=== PATIENT | female | born 1990 | race Two or more races ===

== ENCOUNTER 2021-11-22 01:57 | Inpatient (IN) | payer OTHER ==
[~2021-11-22] VITALS: Ht 162.6 cm; Wt 144.0 kg
[2021-11-22] VITALS (8 sets, daily range): BP systolic 98–125; BP diastolic 49–75
[2021-11-22 04:35] LABS: Urine Bacteria NONE SEEN /hpf (None Seen); Urine Blood 3+ /uL (Negative); Urine Mucus FEW (None Seen); Urine Specific Gravity 1.027 (1.001-1.035); Urine WBC 23 /hpf (0 - 5)
[2021-11-22 06:50] LABS: Basophils # (auto) 0.1 10 ^3/uL (0-0.2); Eosinophils # (auto) 0.3 10 ^3/uL (0-0.8); Monocytes # (auto) 0.9 10 ^3/uL (0-1.3); Neutrophils # (auto) 6.9 10 ^3/uL (1.6-8.6); Nucleated Red Blood Cells % 0.3 %
[2021-11-22 06:58] LABS: Albumin 3.5 g/dL (3.4-5.0); Calcium 8.4 mg/dL (8.5-10.1); Potassium 3.3 mmol/L (3.5-5.1)
[2021-11-22 07:00] LABS: Basophils % (auto) 0.6 % (0.0-2.0); Eosinophils % (auto) 2.4 % (0.0-7.0); Hematocrit 18.7 % (36.0-46.0); Hemoglobin 5.3 g/dL (12.2-16.2); Lymphocytes % (auto) 27.1 % (10.0-50.0); Mean Corpuscular Hemoglobin 14.6 pg (28.0-32.0); Mean Corpuscular Hgb Conc. 28.2 g/dL (32.0-36.0); Mean Corpuscular Volume 51.7 fL (80.0-100.0); Monocytes % (auto) 7.7 % (0.0-12.0); Neutrophils % (auto) 62.2 % (37.0-80.0); Red Blood Cells 3.62 10^6/uL (4.0-5.20); Red Cell Distribution Width 20.8 % (11.8-14.3); White Blood Cell 11.1 10^3/uL (4.4-10.8)
[2021-11-22] MEDS ORDERED: SODIUM CHLORIDE 0.9% 1,000 ML IV ONE (07:00)
[2021-11-22 07:01] LABS: Bilirubin, Total 0.3 mg/dL (0.2-1.0); Total Protein 8.3 g/dL (6.4-8.2)
[2021-11-22 07:38] LABS: INR 0.97 (0.9-1.15); Partial Thromboplastin Time 23.1 sec (23.6-33.0)
[2021-11-22] MEDS ORDERED: LACTATED RINGER'S 1,000 ML IV ONE (08:15)
[2021-11-22] MEDS ORDERED: PANTOPRAZOLE 40 MG/10 ML VIAL INJ IV ONE (08:15)
[2021-11-22] MEDS: SODIUM CHLORIDE 0.9% 1,000 ML IV SCH ×2 (08:15→19:57)
[2021-11-22 08:43] LABS: % Iron Saturation 1.8 % (15-50)
[2021-11-22 08:50] LABS: INR 0.99 (0.9-1.15); Partial Thromboplastin Time 22.7 sec (23.6-33.0)
[2021-11-22] MEDS ORDERED: ACETAMINOPHEN 325 MG TAB PO PRN (10:30)
[2021-11-22] MEDS ORDERED: ONDANSETRON HCL 4 MG/2 ML VIAL IV PRN (10:30)
[2021-11-22] MEDS ORDERED: hydrALAZINE HCL 20 MG/ML VL IV PRN (10:30)
[2021-11-22] MEDS ORDERED: SODIUM FERR GLUC 62.5MG/5ML 125 MG in SODIUM CHL 0.9% 100 ML IV ONE (10:30)
[2021-11-22] MEDS ORDERED: HYDROcodone-ACET 5/325MG TAB PO PRN (10:30)
[2021-11-22] MEDS ORDERED: LORazepam 0.5 MG TAB PO PRN (10:30)
[2021-11-22] MEDS ORDERED: ALBUTEROL SULF 2.5 MG/0.5ML(0.5%) NEB SOLN NEB PRN (10:30)
[2021-11-22] MEDS ORDERED: DOCUSATE SOD 100 MG CAP PO PRN (10:30)
[2021-11-22] MEDS ORDERED: MORPHINE SULFATE INJ 2 MG/ml SYRG IV PRN ×2 (10:30→13:45)
[2021-11-22 11:15] LABS: Magnesium 2.5 mg/dL (1.6-2.6); Phosphorus 2.5 mg/dL (2.5-4.90)
[2021-11-22] MEDS: PANTOPRAZOLE 40 MG/10 ML VIAL INJ IV SCH ×2 (11:40→21:40)
[2021-11-22] MEDS: FERROUS SULFATE 325mg EC TAB PO SCH ×2 (12:51→19:34)
[2021-11-22] MEDS ORDERED: NITROGLYCERIN 0.4 MG SL TAB SL PRN (13:45)
[2021-11-22] MEDS: CLINDAMYCIN 600MG IV 50 ML IV SCH ×2 (14:18→21:18)
[2021-11-22] MEDS: MONTELUKAST SODIUM 10 MG TAB PO SCH (21:40)
[2021-11-23] VITALS (13 sets, daily range): BP systolic 101–151; BP diastolic 55–88
[2021-11-23] MEDS: CLINDAMYCIN 600MG IV 50 ML IV SCH (05:18)
[2021-11-23 06:26] LABS: Mean Corpuscular Volume 57.6 fL (80.0-100.0)
[2021-11-23 06:28] LABS: Basophils # (auto) 0.1 10 ^3/uL (0-0.2); Basophils % (auto) 0.6 % (0.0-2.0); Eosinophils # (auto) 0.3 10 ^3/uL (0-0.8); Eosinophils % (auto) 2.8 % (0.0-7.0); Hematocrit 21.9 % (36.0-46.0); Lymphocytes # (auto) 2.3 10 ^3/uL (0.4-5.4); Lymphocytes % (auto) 24.4 % (10.0-50.0); Mean Corpuscular Hemoglobin 17.3 pg (28.0-32.0); Monocytes # (auto) 0.7 10 ^3/uL (0-1.3); Neutrophils # (auto) 6.1 10 ^3/uL (1.6-8.6); Neutrophils % (auto) 65.2 % (37.0-80.0); Nucleated Red Blood Cells % 0.5 %; Red Blood Cells 3.81 10^6/uL (4.0-5.20); White Blood Cell 9.4 10^3/uL (4.4-10.8)
[2021-11-23 06:35] LABS: INR 1.02 (0.9-1.15); Partial Thromboplastin Time 25.1 sec (23.6-33.0)
[2021-11-23 06:47] LABS: Calcium 7.9 mg/dL (8.5-10.1); Magnesium 2.2 mg/dL (1.6-2.6); Potassium 3.8 mmol/L (3.5-5.1)
[2021-11-23 06:52] LABS: BUN/Creatinine Ratio 10.6; Bilirubin, Total 0.5 mg/dL (0.2-1.0); CRP High Sensitivity 0.72 mg/dL (< 0.3); Phosphorus 2.9 mg/dL (2.5-4.90); Uric Acid 4.7 mg/dL (2.6-6.0)
[2021-11-23 06:54] LABS: Hemoglobin 6.6 g/dL (12.2-16.2); Red Cell Distribution Width 24.4 % (11.8-14.3)
[2021-11-23 07:07] LABS: Thyroid Stimulating Hormone 1.75 uIU/mL (0.358-3.74)
[2021-11-23] MEDS ORDERED: cefTRIAXone 1GM/50ML D5W 50 ML IV SCH (09:00)
[2021-11-23] MEDS: FERROUS SULFATE 325mg EC TAB PO SCH ×3 (09:53→17:54)
[2021-11-23] MEDS: PANTOPRAZOLE 40 MG/10 ML VIAL INJ IV SCH ×2 (09:53→21:09)
[2021-11-23] MEDS: SODIUM FERR GLUC 62.5MG/5ML 125 MG in SODIUM CHL 0.9% 100 ML IV SCH (12:43)
[2021-11-23 15:11] LABS: Hematocrit 23.5 % (36.0-46.0); Hemoglobin 7.1 g/dL (12.2-16.2)
[2021-11-23] MEDS ORDERED: diphenhdrAMINE HCL 50 MG/1 ML VL IV ONE (17:30)
[2021-11-23] MEDS ORDERED: ACETAMINOPHEN 325 MG TAB PO ONE (17:30)
[2021-11-23] MEDS: SODIUM CHLORIDE 0.9% 1,000 ML IV SCH (17:54)
[2021-11-23] MEDS: MONTELUKAST SODIUM 10 MG TAB PO SCH (21:09)
[2021-11-24 04:46] VITALS: BP 126/72
[2021-11-24 06:07] LABS: Hematocrit 25.2 % (36.0-46.0); Hemoglobin 7.8 g/dL (12.2-16.2)
[2021-11-24 06:16] LABS: Potassium 3.9 mmol/L (3.5-5.1)
[2021-11-24 06:20] LABS: Magnesium 2.2 mg/dL (1.6-2.6)
[2021-11-24] MEDS: FERROUS SULFATE 325mg EC TAB PO SCH ×2 (08:00→12:00)
[2021-11-24 09:00] VITALS: BP 122/50
[2021-11-24] MEDS ORDERED: FER325T PO (10:39)
[2021-11-24] MEDS: SODIUM FERR GLUC 62.5MG/5ML 125 MG in SODIUM CHL 0.9% 100 ML IV SCH (12:00)
[2021-11-24 13:00] VITALS: BP 123/48
[2021-11-24 14:01] VITALS: BP 123/48
== END 2021-11-24 16:02 | disposition home or self-care (01) | DRG 663 ==
LOC: ER 01:57 → TELE 13:31 → TELE-WESTW 20:22
PROVIDERS: ADMIT Hospitalist; ATTEND Internal Medicine
PROC: 30233N1 Transfusion of Nonautologous Red Blood Cells into Peripheral Vein, Percutaneous Approach (ICD-10-PCS; principal; 2021-11-22)
DX: D50.0 Iron deficiency anemia secondary to blood loss (chronic) (principal); Z68.43 Body mass index [BMI] 50.0-59.9, adult; N92.1 Excessive and frequent menstruation with irregular cycle; E11.9 Type 2 diabetes mellitus without complications; J45.909 Unspecified asthma, uncomplicated; D72.829 Elevated white blood cell count, unspecified; N93.8 Other specified abnormal uterine and vaginal bleeding; R00.1 Bradycardia, unspecified; E66.01 Morbid (severe) obesity due to excess calories; Z80.41 Family history of malignant neoplasm of ovary; Z88.5 Allergy status to narcotic agent; Z88.6 Allergy status to analgesic agent; Z20.822 Contact with and (suspected) exposure to COVID-19
CPT/HCPCS: 36415; 36430; 74176; 76856; 80053; 80061; 81001; 81025; 82270; 82550; 82728; 83036; 83540; 83550; 83615; 83690; 83735; 83880; 84100; 84132; 84439; 84443; 84484; 84550; 85014; 85018; 85025; 85379; 85610; 85652; 85730; 86141; 86850; 86900; 86901; 86920; 87040; 87086; 93005; 96361; 96365; 99291; C9113; G0378; J0696; J3490

== ENCOUNTER 2021-11-27 13:51 | Emergency (ER) | payer OTHER ==
[~2021-11-27] VITALS: Ht 162.6 cm; Wt 136.1 kg
[~2021-11-27 13:51] MED LIST: FER325T PO
[2021-11-27 19:30] VITALS: BP 116/67
[2021-11-27] MEDS ORDERED: CLINDAMYCIN HCL 150 MG CAP PO ONE (21:00)
[2021-11-27] MEDS ORDERED: CLIN-188 PO (21:00)
== END 2021-11-27 21:37 | disposition home or self-care (01) ==
LOC: ER 13:51
DX: L03.114 Cellulitis of left upper limb (principal); J45.909 Unspecified asthma, uncomplicated; Z86.2 Personal history of diseases of the blood and blood-forming organs and certain disorders involving the immune mechanism; Z79.2 Long term (current) use of antibiotics; Z79.899 Other long term (current) drug therapy; Z88.6 Allergy status to analgesic agent; Z88.8 Allergy status to other drugs, medicaments and biological substances
CPT/HCPCS: 93971